=== PATIENT | male | born 1975 | race African-American/Black ===

== ENCOUNTER 2016-11-05 20:21 | Observation (INO) | payer MEDICARE, BC ==
--- NOTE | ~2016-11-05 | CN ---
Consultation Report [facility] [address] [place]. [address] NAME: RORY COLÓN : 75 STATUS : ADM Soniya PAT#: [id number] AGE: 41 ADM/REG DATE : 11/05/16 MR#: [id number] REPORT SERV DATE: 11/07/16 DICTATED BY: JUNO CLARK DATE: 11/06/16 REPORT STATUS : Draft TRANSCRIBED BY: MODJohn DATE: 11/06/16 CARDIOLOGY CONSULTATION DATE OF CONSULTATION: 11/06/2016 CHIEF COMPLAINT: Chest pain. REASON FOR ADMISSION: Chest pain. SOURCE: Patient chart. PRESENT ILLNESS: Mr. Colón is a very pleasant 41-year-old black man with no prior cardiac history. He has end-stage renal disease, on hemodialysis. He was in his usual state of health until yesterday about 1 p.m. when he had eaten a chicken leg and some old mashed potatoes and five minutes later developed substernal chest pain, described as pressure radiating to both shoulders up to 7/10 in severity lasting five to seven minutes. No associated nausea, vomiting, dyspnea, or diaphoresis. The inbound customer service representative were summoned who gave him nitroglycerin. He thinks may have helped. In any event, the pain resolved, and he has not had any further episodes since that time. He was transported to [facility] where he was admitted for further care. He has been doing well since that time. REVIEW OF SYSTEMS: All other systems are negative. ALLERGIES: NO KNOWN DRUG ALLERGIES. MEDICATIONS: At home included clonidine, Benadryl, and Cardura. CARDIAC RISK FACTORS: Hypertension. Denies diabetes, cholesterol, tobacco, or family history. SOCIAL HISTORY: The patient lives in [place]. He is single, has no biological kids, but he does have a stepson who is alive and well. He is disabled due to end-stage renal disease. PAST MEDICAL HISTORY: Significant for end-stage renal disease, on hemodialysis for the last 9 or 10 years. He had a loop graft seven or eight years ago and an AV fistula three or four years ago. He has had hyperparathyroidism, status post surgery on 11/21/2015; sleep apnea, but could not tolerate CPAP; hypertension, status post herniorrhaphy, status post bilateral leg fracture nonoperative. Reported history of reflux. PHYSICAL EXAMINATION: GENERAL: This is a well-developed, well-nourished, middle-aged black man, in no acute distress. Consultation Report [address] [place]. [address] NAME: RORY COLÓN : 75 STATUS : ADM Soniya PAT#: [id number] AGE: 41 ADM/REG DATE : 11/05/16 MR#: [id number] REPORT SERV DATE: 11/07/16 DICTATED BY: JUNO CLARK DATE: 11/06/16 REPORT STATUS : Draft TRANSCRIBED BY: TRACI DATE: 11/06/16 VITAL SIGNS: Blood pressure 142/62, pulse 105, temperature 98.1, weight is 86 kg. Height is 5 feet 9 inches. HEENT: Sclerae anicteric. Lips without cyanosis. Carotids 2+ and symmetrical. No bruits. No JVD. No thyromegaly. Facial deformity with enlarged cranial pharyngeal area. LUNGS: Clear to auscultation. No use of accessory muscles. HEART: Regular rate and rhythm with a 2/6 systolic murmur. No heaves or thrills. ABDOMEN: Positive bowel sounds. Soft, nontender. EXTREMITIES: Pulses 2+ and symmetrical. No cyanosis, clubbing, or edema. Surgical changes left arm fistula back no CVA tenderness musculoskeletal good tone neuro alert orient x3 EKG reveals normal sinus rhythm, normal tracing. LABORATORY EXAMINATION: The white count 5.0, hemoglobin 11.9, hematocrit 36.8, platelets 120,000. INR 1.2. PTT 32.8. The sodium 141, potassium 4.7 chloride 100, CO2 of 28, glucose 71, BUN 60, creatinine 11.4. Troponin of less than 0.02. Three sets less than 0.02, 0.03, and less than 0.02. Chest x-ray, lungs clear. Heart size is normal. IMPRESSION: 1. Episode of chest pain yesterday, now resolved no evidence of myocardial infarction. 2. End-stage renal disease, on hemodialysis. 3. Hypertension currently under fair control. 4. History of sleep apnea. 5. Hyperparathyroidism, status post surgery last year. RECOMMENDATIONS: 1. I agree with planed nuclear medicine stress test in a.m. the risks benefits complications were discussed with the patient. He understands them and those of his alternatives and wishes to proceed. Questions answered. 2. Further recommendations following the above. DAGOBERTO/ALECL Juno Clark M.D. / [id number] CC: Hernandez Gonzales M.D.
--- NOTE | ~2016-11-05 | HP ---
History And Physical [id number] [place]. [address] NAME: RORY COLÓN : 75 STATUS : DIS IN PAT#: [id number] AGE: 41 ADM/REG DATE : 11/06/16 MR#: [id number] REPORT SERV DATE: 11/13/16 DICTATED BY: KULDEEP VILLA DATE: 11/06/16 REPORT STATUS : Draft TRANSCRIBED BY: TRACI DATE: 11/06/16 DATE OF ADMISSION: 11/05/2016 CHIEF COMPLAINT: Chest pain. HISTORY OF PRESENT ILLNESS: The patient is a 41-year-old gentleman with significant past medical history of ESRD, hypertension, EMILY, presented to the ER status post episode of chest pain. The patient noted chest pain after eating a chicken and mashed potatoes. He denies any problems chewing or swallowing the food. Chest pain is substernal in nature, 5 to 6/10. It relieved when the EMS arrived and gave him aspirin and sublingual nitroglycerin spray. He has not had any additional episodes of chest pain on presentation. The patient's cardiac markers and CPK total are pending. Troponin has been less than 0.02 x2. EKG did not show ST deviation. Chest x-ray showed no infiltrates, effusions, or widening of his aorta. The patient denies any fevers, chills, nausea, vomiting, diarrhea. He is asymptomatic at this time. The patient has been evaluated by Cardiology who wants to perform a stress test tomorrow. PAST MEDICAL HISTORY: 1. ESRD, DCI on Mondays, Wednesdays, and Fridays. 2. Remote history of obstructive uropathy. 3. Hypertension. 4. Anemia. 5. EMILY. 6. Inguinal hernia repair. 7. Hypocalcemia. SOCIAL HISTORY: No recreational drugs or alcohol. FAMILY MEDICAL HISTORY: No known kidney disease. ALLERGIES: NO KNOWN DRUG ALLERGIES. HOME MEDICATIONS: Include Benadryl 50 mg p.o. at bedtime p.r.n. for itching. Clonidine 0.1 mg p.o. at bedtime. Doxazosin 4 mg p.o. at bedtime. REVIEW OF SYSTEMS: Complete review of systems is negative, otherwise as stated in HPI. PHYSICAL EXAMINATION: VITAL SIGNS: Temperature is 98.6, pulse is 83, blood pressure is 149/103. GENERAL: He is in no apparent distress. Answers questions appropriately. The patient has accentuated maxillary bone structures. SKIN: No petechiae or purpura. History And Physical [address] [address] NAME: RORY COLÓN : 75 STATUS : DIS IN PAT#: [id number] AGE: 41 ADM/REG DATE : 11/06/16 MR#: [id number] REPORT SERV DATE: 11/13/16 DICTATED BY: KULDEEP VILLA. DATE: 11/06/16 REPORT STATUS : Draft TRANSCRIBED BY: MODL DATE: 11/06/16 NECK: No JVP. Trachea is midline. CARDIOVASCULAR: Regular rate and rhythm. No gallops, rubs, murmurs. RESPIRATORY: Clear to auscultation bilaterally. No increased respiratory rate. ABDOMEN: Soft, nontender, and nondistended. Positive bowel sounds. EXTREMITIES: No peripheral edema. LABORATORY DATA: Troponin is less than 0.03 x3. Sodium is 143, potassium 4.9, chloride is 100, CO2 of 29, BUN 24, creatinine is 4.6, calcium is 8.5, magnesium is 2.1. White blood cell count is 5, hemoglobin 11.9, platelets are 120. IMAGING: Chest x-ray, no infiltrates or effusions. ASSESSMENT: 1. Chest pain. 2. End-stage renal disease. 3. Obstructive sleep apnea. 4. Hypertension. PLAN: 1. Cardiac markers x3. 2. Stress test planned tomorrow. 3. Cardiology appreciated. 4. Hemodialysis. 5. Home and p.r.n. medications. 6. Disposition pending. SGG/TRACI Kuldeep Villa M.D. / [id number] CC: Hernandez Gonzales M.D. NO PCP
[2016-11-05 20:21] LABS: BASOPHILS 0.2 %; BASOPHILS ABSOLUTE 0.01 10/3/uL (0.0-0.16); EOSINOPHILS 1.4 %; EOSINOPHILS ABSOLUTE 0.07 10/3/uL (0.0-0.53); ER CBC TAT 0 Hrs 09 Mins; HEMATOCRIT 36.8 % (40.0-51.0); HEMOGLOBIN 11.9 g/dL (13.6-17.8); IMMATURE GRANULOCYTES 0.4 %; IMMATURE GRANULOCYTES ABSOLUTE 0.02 10/3/uL (0.0-0.11); LYMPHOCYTES 16.2 %; LYMPHOCYTES ABSOLUTE 0.81 10/3/uL (0.67-4.30); MANUAL DIFF NO %; MEAN CORPUS HGB CONC 32.3 g/dL (32.0-36.0); MEAN CORPUSCULAR HEMOGLOB 30.2 pg (26.0-34.0); MEAN CORPUSCULAR VOLUME 93.4 fL (80-100); MEAN PLATELET VOLUME 10.9 fL (9.2-13.0); MONOCYTES ABSOLUTE 0.45 10/3/uL (0.21-1.20); NEUTROPHILS 72.8 %; NEUTROPHILS ABSOLUTE 3.65 10/3/uL (2.02-8.40); PLATELET COUNT 120 10/3/uL (150-400); RED CELL COUNT 3.94 10/6/uL (4.7-6.1)
[~2016-11-05 20:21] MED LIST: AFRIN15 NAS; BYSTOLIC10 MG PO; CARDCD180 PO; CARDURA8 MG PO; CAT1 PO; COZAAR100 MG PO; DILTIAZEM PO; DIOV80 PO; DIOVAN PO; DIOVAN320 MG PO; DOXAZOSIN PO; L80 PO; LABETALOL PO; LASIX PO; NORCO1 TA2 PO; NORV10 PO; PHOSLO PO; RENA-VITE PO; ROCALTROL0.5 MCG PO; SENSIPAR30 M1 PO; SENSIPAR90 MG PO; TITRALALIQ PO; TRAN200 PO; TRANDAT100 PO; [UNRECOGNIZED DRUG - OTHER] PO
[2016-11-05 20:26] LABS: INTERNATIONAL NORMAL RATI 1.2 UNITS (-); PARTIAL THROMBO TIME 32.8 SEC (22.5-37.2); PROTIME (NOT ORD) 14.8 SEC (12.0-14.5)
[2016-11-05 20:36] LABS: CHEST PAIN PROFILE TAT 0 Hrs 24 Mins; CHLORIDE, SERUM 100 MMOL/L (96-112); CO2 (CARBON DIOXIDE) 29 MMOL/L (24-34); GLUCOSE, SERUM 78 MG/DL (60-99); POTASSIUM, SERUM 4.9 MMOL/L (3.5-5.3); TROPONIN I <0.02 NG/ML (<0.05)
[2016-11-05 20:37] LABS: BUN (BLOOD UREA NITROGEN) 64 MG/DL (6-23); CALCIUM, SERUM 8.5 MG/DL (8.5-10.4); GFR AFRICAN AMERICAN 5 ML/MIN (>=60); GFR NON AFRICAN AMERICAN 4 ML/MIN (>=60); SODIUM, SERUM 143 MMOL/L (135-148)
[2016-11-06] MEDS ORDERED: CAT1 PO (00:01)
[2016-11-06] MEDS ORDERED: CARDU4 PO (00:01)
[2016-11-06] MEDS ORDERED: BEN25 PO (00:01)
[2016-11-06 14:00] LABS: ALBUMIN 3.5 G/DL (3.5-5.0); CALCIUM, SERUM 8.6 MG/DL (8.5-10.4); CHLORIDE, SERUM 100 MMOL/L (96-112); CO2 (CARBON DIOXIDE) 28 MMOL/L (24-34); GLUCOSE, SERUM 71 MG/DL (60-99); POTASSIUM, SERUM 4.7 MMOL/L (3.5-5.3); SODIUM, SERUM 141 MMOL/L (135-148); TROPONIN I <0.02 NG/ML (<0.05)
[2016-11-06 14:02] LABS: BUN (BLOOD UREA NITROGEN) 60 MG/DL (6-23); GFR AFRICAN AMERICAN 6 ML/MIN (>=60); GFR NON AFRICAN AMERICAN 5 ML/MIN (>=60); PHOSPHORUS, SERUM 4.5 MG/DL (2.5-4.5)
== END 2016-11-07 19:50 | disposition home or self-care (01) ==
LOC: ER 20:21 → 1SO 23:39
PROVIDERS: Emergency Medicine; Internal Medicine Nephrology
DX: R07.9 Chest pain, unspecified (principal); I12.0 Hypertensive chronic kidney disease with stage 5 chronic kidney disease or end stage renal disease; N18.6 End stage renal disease; G47.33 Obstructive sleep apnea (adult) (pediatric); E89.0 Postprocedural hypothyroidism; D64.9 Anemia, unspecified; E83.51 Hypocalcemia; N13.9 Obstructive and reflux uropathy, unspecified; K21.9 Gastro-esophageal reflux disease without esophagitis; Z99.2 Dependence on renal dialysis; Z98.890 Other specified postprocedural states
CPT/HCPCS: 71010; 78452; 80048; 80069; 83735; 84484; 85025; 85610; 85730; 93005; 93017; 96374; 99285; A9270-GY; A9502; G0257; G0378; J0153; J0636